=== PATIENT | female | born 1995 | race Caucasian/White ===

== ENCOUNTER 2017-07-07 23:04 | Outpatient (CLI) | payer OTHER ==
[2017-07-07 23:17] VITALS: BP 117/70
[2017-07-07] MEDS ORDERED: LACTATED RINGERS 1,000 ML IV ONE (23:21)
[2017-07-07 23:44] LABS: Bacteria,Urine 1+ /HPF (Negative); Bilirubin,Urine NEG (Negative); Blood,Urine NEG (Negative); Ketones,Urine 20 mg/dL (Negative); Leukocyte Esterase,Urine SM (Negative); Mucus,Urine FEW /HPF; Nitrite,Urine NEG (Negative); Protein,Urine <15 mg/dL mg/dL (Negative); Urobilinogen,Urine < 2.0 mg/dL (<2.0)
[2017-07-07 23:50] LABS: RBC,Urine < 1.0 /HPF (0.0-6.0); WBC,Urine < 1.0 /HPF (0.0-6.0)
== END 2017-07-08 00:54 | disposition home or self-care (01) ==
LOC: TRG 23:04
PROVIDERS: ATTEND Obstetrics & Gynecology
DX: O47.02 False labor before 37 completed weeks of gestation, second trimester (principal); Z3A.27 27 weeks gestation of pregnancy
CPT/HCPCS: 59025; 81001; 96360; J7120

== ENCOUNTER 2017-07-26 14:27 | Outpatient (CLI) | payer OTHER ==
[2017-07-26 16:50] VITALS: BP 99/49
[2017-07-26] MEDS ORDERED: LACTATED RINGERS 1,000 ML IV SCH (17:00)
[2017-07-26 17:36] LABS: Bilirubin,Urine NEG (Negative); Blood,Urine NEG (Negative); Color,Urine Yellow (Yellow); Mucus,Urine 1+ /HPF; Nitrite,Urine NEG (Negative); Protein,Urine <15 mg/dL mg/dL (Negative)
== END 2017-07-26 20:02 | disposition home or self-care (01) ==
LOC: TRG 14:27
PROVIDERS: ATTEND Obstetrics & Gynecology
DX: Z34.93 Encounter for supervision of normal pregnancy, unspecified, third trimester (principal); Z3A.30 30 weeks gestation of pregnancy
CPT/HCPCS: 59025; 81001; 96360; J7120

== ENCOUNTER 2017-09-26 13:35 | Inpatient (IN) | payer OTHER ==
[2017-09-26] MEDS ORDERED: SUBLIMAZE IV PRN ×2 (14:10→15:00)
[2017-09-26] MEDS ORDERED: ePHEDrine SULFATE IV PRN ×2 (14:10→16:01)
[2017-09-26] MEDS ORDERED: XYLOCAINE 2% INFILTRATI ONE (14:10)
[2017-09-26] MEDS ORDERED: MINERAL OIL PO PRN (14:10)
[2017-09-26] MEDS ORDERED: BRETHINE SUB-Q PRN (14:10)
[2017-09-26] MEDS ORDERED: ZOFRAN IV PRN ×2 (14:10→22:36)
--- NOTE | 2017-09-26 14:19 | History and Physical Report ---
History of Present Illness Date of examination: 09/26/17 (pt presents in active labor) History of present illness: EDC Confirmation: 10/04/2017 Gestational Age: 5 5/7 weeks Past History : 2 Para: 1 Aborta: 0 Past Medical History: Reviewed history from 10/26/2015 and no changes required: Negative Past Medical History Past Surgical History: Reviewed history from 10/26/2015 and no changes required: toe nail removed Past Medical History Abnormal PAP: negative BHARAT Exposure: negative Infertility: negative Uterine Anomaly: negative Uterine Surgery (not C/S): negative Other Gynecologic Problems: negative Social Hx: Patient is single Smoking History: Patient has never smoked. Infection History Hx of STD: none HIV Risk Eval: low risk Hepatitis B Risk Eval: low risk Personal hx. of genital herpes: no Partner hx. of genital herpes: no Rash, Viral, or Febrile illness since last LMP? no Varicella/Chicken Pox Status: Immunized Genetic History Congenital Heart Defect: Mom: no Dad: no Levi Disease: Mom: no Dad: no Thalassemia Mom: no Dad: no Neural Tube Defect Mom: no Dad: no Down's Syndrome Mom: no Dad: no Alexis-Sachs Mom: no Dad: no Sickle Cell Disease/Trait Mom: no Dad: no Hemophilia Mom: no Dad: no Muscular Dystrophy Mom: no Dad: no Cystic Fibrosis Mom: no Dad: no [place] Chorea Mom: no Dad: no Mental Retardation Mom: no Dad: no Fragile X Mom: no Dad: no Other Genetic/Chromosomal Disorder Mom: no Dad: no Child w/other defect Mom: no Dad: no Enviromental Exposures Xray Exposure: no Medication, drug, or alcohol use since LMP: no Chemical/Other Exposure: no Exposure to Cat Liter: no Hx of Parvovirus (Fifth Disease): no Occupational Exposure to Children: none Active Medications (reviewed today): None Current Allergies (reviewed today): No known allergies Laboratory Results Routine Urinalysis Leukocytes: negative Nitrite: negative Urobilinogen: negative Protein: Negative Blood: negative Ketone: negative Bilirubin: negative Glucose: Negative Urine HCG: positive Review of Systems General Denies fever, chills, sweats, anorexia, fatigue, weakness, malaise, weight loss and sleep disorder. Complains of nausea. Denies vomiting, headache, swelling of legs, abdominal pain, vaginal discharge, vaginal bleeding and contractions. Denies vaginal discharge, incontinence, dysuria, hematuria, urinary frequency, amenorrhea, menorrhagia, abnormal vaginal bleeding, pelvic pain, genital sores, decreased libido, painful periods, painful sex, urinary urgency, hot flashes, vaginal dryness, vaginal itching and vaginal odor. CV Denies chest pains, palpitations, syncope, dyspnea on exertion, orthopnea, PND and peripheral edema. Resp Denies cough, dyspnea at rest, excessive sputum, hemoptysis, wheezing and pleurisy. GI Denies nausea, vomiting, diarrhea, constipation, change in bowel habits, abdominal pain, melena, hematochezia, jaundice, gas/bloating, indigestion/ heartburn, dysphagia and odynophagia. Endo Denies cold intolerance, heat intolerance, polydipsia, polyphagia, polyuria and unusual weight change. Breast Denies left breast lump, right breast lump, nipple discharge, bloody discharge from nipple, breast pain, abnormal mammogram and breast enlargement. MS Denies back pain, joint pain, joint swelling, muscle cramps, muscle weakness, stiffness, arthritis, sciatica, restless legs, leg pain at night and leg pain with exertion. Derm Denies rash, itching, dryness and suspicious lesions. Neuro Denies paralysis, paresthesias, headache, seizures, tremors, vertigo, transient blindness, frequent falls, frequent headaches and difficulty walking. Psych Denies depression, anxiety, irritability and mood swings. Eyes Denies blurring, diplopia, irritation, discharge, vision loss, eye pain and photophobia. ENT Denies earache, ear discharge, tinnitus, decreased hearing, nasal congestion, nosebleeds, sore throat and hoarseness. Allergy Denies urticaria, allergic rash, hay fever and recurrent infections. Heme Denies abnormal bruising, bleeding and enlarged lymph nodes. PHYSICAL EXAM HEENT: PERRLA, normal conjunctiva, external nose and nasal mucosa normal, oropharynx clear Neck/Thyroid: supple, thyroid normal Skin no significant abnormal lesions or rashes Chest: respiratory effort normal, clear to auscultation Breasts: normal without skin changes or masses CV: regular, normal S1-S2, no murmur, no rub, no gallop Abdomen: normal bowel sounds, soft, nontender, no HSM Musculoskeletal: grossly normal ROM in joints, no joint tenderness or muscle weakness Neuro: grossly normal DTRs, sensation, strength, cranial nerves Extremities: no clubbing, cyanosis, or edema [employer] SALESP[employer] Exams Fundal Ht: sono size: AGA FHT: + Past History - Obstetrical History Expected Date of Delivery: 10/04/17 Actual Gestation: 38 Week(s) 6 Day(s) : 2 Para: 1 Hx # Term Pregnancies: 1 Number of Living Children: 1 Medications and Allergies Allergies Allergy/AdvReac Type Severity Reaction Status Date / Time No Known Allergies Allergy Unverified 06/15/16 19:58 Home Medications Medication Instructions Recorded Confirmed Last Taken Type Ferrous Sulfate [Feosol 325 MG tab] 325 mg PO TID #90 tablet 06/16/16 Unknown Rx Ibuprofen [Motrin 800 MG tab] 800 mg PO Q8HR PRN #30 tablet 06/16/16 Unknown Rx Lidocain2.5%/Prilocai2.5% [Emla] 5 gm TP ONCE PRN #1 tube 06/16/16 Unknown Rx Active Meds: Active Medications Ephedrine Sulfate (Ephedrine Sulfate) 10 mg IV Q2M PRN PRN Reason: Hypotension Fentanyl (Sublimaze) 100 mcg IV Q2H PRN PRN Reason: Labor Pain Parenteral Electrolytes (Normosol-R Ph 7.4) 1,000 mls @ 125 mls/hr IV DIRECT ZEINAB Oxytocin/Sodium Chloride (Pitocin/Ns 20 Unit/1000ml Drip) 20 units in 1,000 mls @ 125 mls/hr IV DIRECT ZEINAB Oxytocin/Sodium Chloride (Pitocin/Ns 30 Unit/500ml) 30 units in 500 mls @ 4 mls /hr IV TITR ZEINAB; Protocol Lidocaine (Xylocaine 2%) 20 ml INFILTRATI ONCE ONE Stop: 09/26/17 14:11 Mineral Oil (Mineral Oil) 30 ml PO QHS PRN PRN Reason: Constipation Ondansetron HCl (Zofran) 4 mg IV Q8H PRN PRN Reason: Nausea And Vomiting Terbutaline Sulfate (Brethine) 0.25 mg SUB-Q ONCE PRN PRN Reason: Hyperstimulation/Hypertonicity - Vital Signs Vital signs: Vital Signs Pulse BP 93 H 120/70 09/26/17 14:05 09/26/17 14:05 Temp Pulse Resp BP Pulse Ox 93 H 120/70 09/26/17 14:09/26/17 14:05 - Physical Exam Breasts: Positive: deferred Cardiovascular: Regular rate, Normal S1, Normal S2 Lungs: Positive: Normal air movement Abdomen: Positive: normal appearance, soft, normal bowel sounds. Negative: distention, tenderness Genitourinary (Female): Positive: normal perenium Vulva: both: normal Vagina: Positive: normal moisture. Negative: discharge Cervix: Negative: lesion, discharge Uterus: Positive: normal size, normal contour Adnexa: both: normal Anus/Rectum: Positive: normal perianal skin, heme negative. Negative: rectal mass, hemorrhoids Extremities: Deep Tendon Reflex Grade: Normal +2 - Obstetrical FHR: category 1 Uterine Contraction Monitor Mode: External Cervical Dilatation: 5 (per social sciences chair) Cervical Effacement Percentage: 90 station: 0 Uterine Contraction Pattern: Regular Uterine Tone Measurement Phase: Resting Uterine Contraction Intensity: Moderate Results All other labs normal. Strep Gp B GEOVANI Negative HBsAg Screen Negative Negative *1 Rubella Antibodies, IgG [L] <0.90 index Immune >0.99 *2 Non-immune <0.90 Equivocal 0.90 - 0.99 Immune >0.99 ABO Grouping O *3 Rh Factor Positive *4 Please note: Prior records for this patient's ABO / Rh type are not available for additional verification. Antibody Screen Negative Negative *5 RPR Non Reactive Non Reactive *6 WBC [H] 12.3 x10E3/uL 3.4-10.8 *7 RBC 4.86 x10E6/uL 3.77-5.28 *8 Hemoglobin [L] 11.0 g/dL 11.1-15.9 *9 Hematocrit 35.8 % 34.0-46.6 *10 MCV [L] 74 fL 79-97 *11 MCH [L] 22.6 pg 26.6-33.0 *12 MCHC [L] 30.7 g/dL 31.5-35.7 *13 RDW [H] 16.9 % 12.3-15.4 *14 Platelets 253 x10E3/uL 150-379 *15 Neutrophils 87 % *16 Lymphs 9 % *17 Monocytes 4 % *18 Eos 0 % *19 Basos 0 % *20 ! Immature Cells <No Reported Value> *21 Neutrophils (Absolute) [H] 10.7 x10E3/uL 1.4-7.0 *22 Lymphs (Absolute) 1.1 x10E3/uL 0.7-3.1 *23 Monocytes(Absolute) 0.5 x10E3/uL 0.1-0.9 *24 Eos (Absolute) 0.0 x10E3/uL 0.0-0.4 *25 Baso (Absolute) 0.0 x10E3/uL 0.0-0.2 *26 ! Immature Granulocytes 0 % *27 ! Immature Grans (Abs) 0.0 x10E3/uL 0.0-0.1 *28 ! NRBC <No Reported Value> *29 Hematology Comments: <No Reported Value> *30 Tests: (2) Cystic Fibrosis Profile (944519) ! CF, Screen Comment: *31 RESULTS: Negative for 32 mutations analyzed Tests: (3) HB Solu + Rflx Fra (563993) Hemoglobin (Hgb) Solubility Negative Negative *33 Tests: (4) Panel 162193 ([id number]) HIV Screen 4th Generation wRfx Non Reactive Non Reactive *34 Tests: (5) HCV Ab w/Rflx to Verification ([id number]) ! HCV Ab <0.1 s/co ratio 0.0-0.9 *35 Tests: (6) Comment: ([id number]) ! Comment: SPRCS *36 Non reactive HCV antibody screen is consistent with no HCV infection, unless recent infection is suspected or other evidence exists to indicate HCV infection. Tests: (7) Urine Culture, Routine ([id number]) Urine Culture, Routine Final report *37 Tests: (8) Result ([id number]) ! Result 1 No growth *38 Assessment and Plan 22yo @ 38+ weeks in active labor GBS negative Orders in EMR Anticipate delivery
[2017-09-26 14:54] LABS: Hematocrit 28.4 % (30.3-42.9); Hemoglobin 8.6 gm/dl (10.1-14.3); Mean Corpuscular HGB Conc 30 % (30-34); Platelet Count 226 K/mm3 (140-440); Red Blood Count 4.44 M/mm3 (3.65-5.03)
[2017-09-26 14:55] LABS: Mean Corpuscular Hemoglobin 19 pg (28-32); Mean Corpuscular Volume 64 fl (79-97); Red Cell Distribution Width 20.1 % (13.2-15.2)
[2017-09-26] MEDS ORDERED: PITOCin/NS 20 UNIT/1000ML DRIP 20 UNITS/1,000 ML BAG IV SCH (15:00)
[2017-09-26] MEDS ORDERED: PITOCin/NS 30 UNIT/500ML 30 UNITS/500 ML BAG IV SCH (15:00)
[2017-09-26] MEDS: NORMOSOL-R PH 7.4 1,000 ML IV SCH ×2 (15:38→16:34)
[2017-09-26] MEDS ORDERED: NARCAN 2 MG/2 ML IV PRN (16:01)
[2017-09-26] MEDS ORDERED: XYLOCAINE 2%/ EPI 1:200,000 INFILTRATI ONE (16:22)
--- NOTE | 2017-09-26 16:34 | Anesthesia Consultation ---
Anesthesia Consult and Med Hx - Airway Anesthetic Teeth Evaluation: Good ROM Head & Neck: Adequate Mental/Hyoid Distance: Adequate Mallampati Class: Class II Intubation Access Assessment: Good - Pulmonary Exam CTA: Yes - Cardiac Exam Cardiac Exam: RRR - Pre-Operative Health Status ASA Pre-Surgery Classification: ASA2 Proposed Anesthetic Plan: Epidural - Pulmonary Hx Asthma: No COPD: No Hx Pneumonia: No - Cardiovascular System Hx Hypertension: No - Central Nervous System Hx Seizures: No Hx Psychiatric Problems: No - Endocrine Hx Renal Disease: No Hx End Stage Renal Disease: No Hx Hypothyroidism: No Hx Hyperthyroidism: No - Hematic Hx Anemia: No Hx Sickle Cell Disease: No - Other Systems Hx Alcohol Use: No
[2017-09-26] MEDS ORDERED: fentaNYL-BUPIV 2 MCG/ML-0.125% 200 MCG/100 ML BAG EPIDURAL SCH (17:30)
--- NOTE | 2017-09-26 18:02 | Procedure Note ---
OB Delivery Note - Delivery Date of Delivery: 09/26/17 Healthcare Manager: ZABRINA SHEPARD Estimated blood loss: 500cc - Vaginal Delivery presentation: vertex Delivery position: OA Intrapartum events: none Delivery augmentation: rupture of membranes Delivery monitor: external FHT, external uterine Route of delivery: Delivery placenta: spontaneous Delivery cord: 3 umbilical vessels Episiotomy: none Delivery laceration: none Anesthesia: epidural Delivery comments: live born female over intact perineum Baby skin to skin on mom's abdomen Cord blood obt Placenta and membrane del complete and intact, 3 vessel cord. Pit IVFs 8/9, EBL 500, Wgt 7-1 Mom and baby remain LDR stable - Infant A at 1 minute: 8 at 5 minutes: 9 Infant Gender: Female (wgt 7-1)
[2017-09-26] MEDS ORDERED: TORADOL IV PRN (18:05)
[2017-09-26] MEDS ORDERED: BENADRYL PO PRN ×2 (18:05→22:36)
[2017-09-26] MEDS ORDERED: DULCOLAX PR PRN ×2 (18:05→22:36)
[2017-09-26] MEDS ORDERED: TYLENOL PO PRN ×2 (18:05→22:36)
[2017-09-26] MEDS ORDERED: LANSINOH TP PRN ×2 (18:05→22:36)
[2017-09-26] MEDS ORDERED: TUCKS PAD TP PRN ×2 (18:05→22:36)
[2017-09-26] MEDS ORDERED: MILK OF MAGNESIA PO PRN ×2 (18:05→22:36)
[2017-09-26] MEDS ORDERED: PHENERGAN PO PRN ×2 (18:05→22:36)
[2017-09-26] MEDS ORDERED: MOTRIN PO SCH (19:00)
[2017-09-26] MEDS ORDERED: SODIUM CHLORIDE FLUSH SYRINGE 10 ML IV NR ×2 (19:00→23:00)
[2017-09-26] MEDS ORDERED: COLACE PO SCH (22:00)
[2017-09-26] MEDS ORDERED: NORCO 5/325 PO PRN (22:36)
[2017-09-26] MEDS ORDERED: ANUCORT-HC PR PRN (22:36)
[2017-09-26] MEDS ORDERED: PHENERGAN PR PRN (22:36)
[2017-09-26] MEDS: MOTRIN PO SCH (23:51)
[2017-09-27] MEDS: SENOKOT S PO SCH ×2 (00:51→23:51)
[2017-09-27] MEDS: MOTRIN PO SCH ×3 (05:12→23:52)
[2017-09-27 05:40] LABS: Hematocrit 24.1 % (30.3-42.9); Hemoglobin 7.3 gm/dl (10.1-14.3)
[2017-09-27] MEDS ORDERED: M-M-R II VACCINE SUB-Q ONE (06:00)
[2017-09-27] MEDS ORDERED: BOOSTRIX IM ONE (06:00)
--- NOTE | 2017-09-27 07:27 | Discharge Summary ---
Providers - Providers Date of Admission: 09/26/17 14:36 Date of discharge: 09/27/17 (pt req d/c today if stable & baby can go) Attending physician: JUVENTINO WINSLOW 09/26/17 22:39 Consult to Director Of Special Services [CONS] Routine Reason For Exam: assistance with , SNS Primary care physician: NANCY MYRICK Hospitalization Reason for admission: active labor Delivery: Episiotomy: none Laceration: none Incision: normal Other procedures: none complications: none Discharge diagnosis: IUP at term delivered [place] baby: female Hospital course: uncomplicated vaginal delivery pt w/o complaint VSS FF below umb Lochia small perineum intact H&H 02/05 Pt has chronic anemia Drop r/t blood loss from surgery Pt is asymptomatic. Doing well s /p vag delivery P: d/c today with instructions RTO 4 weeks RX po iron Pt instructed to increase dietary iron also Condition at discharge: Good Disposition: DC-01 TO HOME OR SELFCARE - Discharge Diagnoses (1) Spontaneous vaginal delivery Status: Acute Comment: RTO 4 weeks PP care (2) Anemia Status: Acute Qualifiers: Anemia type: iron deficiency Iron deficiency anemia type: inadequate dietary iron intake Qualified Code(s): D50.8 - Other iron deficiency anemias Comment: d/c home on po iron and instructions to increase dietary iron Plan - Discharge Medications Prescriptions: Docusate Sodium [Colace] 100 mg PO BID PRN #60 capsule PRN Reason: Constipation Ferrous Sulfate [Feosol 325 MG tab] 325 mg PO BID #60 tablet Ibuprofen [Motrin 800 MG tab] 800 mg PO TID PRN #30 tablet PRN Reason: Pain - Provider Discharge Summary Activity: routine, no sex for 6 weeks, no heavy lifting 4 weeks, no strenuous exercise Diet: routine Instructions: routine Additional instructions: [] Smoking cessation referral if applicable(refer to patient education folder for contact #) [] Refer to [facility]'s [facility] Booklet Call your doctor immediately for: * Fever > 100.5 * Heavy vaginal bleeding ( >1 pad per hour) * Severe persistent headache * Shortness of breath * Reddened, hot, painful area to leg or breast * Drainage or odor from incision. * Keep incision clean and dry at all times and follow doctor's instructions regarding bathing/showering - Follow up plan Follow up: NANCY MYRICK MD [Primary Care Provider] - 10/29/17 (Congratulations! Please call [phone] to schedule your visit in 4 weeks. Take medication as instructed. Also increase the dietary iron in your diet to help improve your anemia. Call with any concerns.)
[2017-09-27] MEDS ORDERED: COLACE PO SCH (10:00)
[2017-09-27] MEDS ORDERED: PRENATAL VITAMIN PO SCH ×2 (10:00)
[2017-09-28] MEDS: MOTRIN PO SCH (05:38)
[2017-09-28] MEDS ORDERED: BOOSTRIX IM ONE (06:00)
[2017-09-28 09:32] VITALS: BP 109/57
[2017-09-28] MEDS ORDERED: M-M-R II VACCINE SUB-Q ONE (10:30)
== END 2017-09-28 10:00 | disposition home or self-care (01) | DRG 775 ==
LOC: TRG 13:35 → LD 14:36 → OB 19:46
PROVIDERS: ADMIT Obstetrics & Gynecology; ATTEND Obstetrics & Gynecology
PROC: 10E0XZZ Delivery of Products of Conception, External Approach (ICD-10-PCS; principal; 2017-09-26)
PROC: 3E0R3BZ Introduction of Anesthetic Agent into Spinal Canal, Percutaneous Approach (ICD-10-PCS; 2017-09-26)
PROC: 00HU33Z Insertion of Infusion Device into Spinal Canal, Percutaneous Approach (ICD-10-PCS; 2017-09-26)
PROC: 3E0234Z Introduction of Serum, Toxoid and Vaccine into Muscle, Percutaneous Approach (ICD-10-PCS; 2017-09-28)
DX: O99.02 Anemia complicating childbirth (principal); Z3A.38 38 weeks gestation of pregnancy; Z37.0 Single live birth; Z23 Encounter for immunization; Z79.899 Other long term (current) drug therapy; D50.9 Iron deficiency anemia, unspecified
CPT/HCPCS: 36415; 85014; 85018; 85027; 86592; 86850; 86900; 86901; 90471; 90707; 90715; 99211; A6250; G0463; J2590; J3010

== ENCOUNTER 2019-01-13 11:01 | Outpatient (CLI) | payer OTHER ==
[2019-01-13] MEDS ORDERED: LACTATED RINGERS 500 ML IV ONE (11:26)
[2019-01-13 11:37] VITALS: BP 116/62
[2019-01-13] MEDS ORDERED: LACTATED RINGERS 1,000 ML IV ONE (11:52)
[2019-01-13 12:04] LABS: Bacteria,Urine 1+ /HPF (Negative); Bilirubin,Urine NEG (Negative); Blood,Urine NEG (Negative); Color,Urine Yellow (Yellow); Mucus,Urine 2+ /HPF; Urobilinogen,Urine < 2.0 mg/dL (<2.0)
[2019-01-13] MEDS ORDERED: ZOFRAN IV ONE (12:49)
== END 2019-01-13 13:27 | disposition home or self-care (01) ==
LOC: TRG 11:01
PROVIDERS: ATTEND Obstetrics & Gynecology
DX: O21.2 Late vomiting of pregnancy (principal); O26.893 Other specified pregnancy related conditions, third trimester; M54.9 Dorsalgia, unspecified; O47.03 False labor before 37 completed weeks of gestation, third trimester; Z3A.33 33 weeks gestation of pregnancy
CPT/HCPCS: 81001; 96361; 96374; J2405; J7120; 59025

== ENCOUNTER 2019-02-19 20:14 | Outpatient (CLI) | payer OTHER ==
[2019-02-19 20:31] VITALS: BP 111/59
== END 2019-02-19 21:45 | disposition home or self-care (01) ==
LOC: TRG 20:14
PROVIDERS: ATTEND Obstetrics & Gynecology
DX: O26.893 Other specified pregnancy related conditions, third trimester (principal); R10.9 Unspecified abdominal pain; Z3A.38 38 weeks gestation of pregnancy
CPT/HCPCS: 59025

== ENCOUNTER 2019-02-20 12:07 | Inpatient (IN) | payer OTHER ==
[2019-02-20] MEDS ORDERED: SUBLIMAZE IV PRN (12:33)
[2019-02-20] MEDS ORDERED: XYLOCAINE 2% INFILTRATI ONE (12:33)
[2019-02-20] MEDS ORDERED: MINERAL OIL PO PRN (12:33)
[2019-02-20] MEDS ORDERED: BRETHINE SUB-Q PRN (12:33)
[2019-02-20] MEDS ORDERED: ZOFRAN IV PRN (12:33)
--- NOTE | 2019-02-20 12:40 | History and Physical Report ---
History of Present Illness Date of examination: 02/20/19 Chief complaint: active labor History of present illness: EDC Calculations LMP: 03/03/2019 Past History : 3 Term Births: 2 Premature Births: 0 Living Children: 2 Para: 2 Mult. Births: 0 Prev : 0 Prev. attempt? none Aborta: 0 Elect. Ab: 0 Spont. Ab: 0 Ectopics: 0 # 1 Delivery date: 06/16/2016 Weeks Gestation: 37 Delivery type: Vaginal Anesthesia type: epidural Delivery location: [facility] Sex: male weight: 7.38 Name: Ryan Isaías WYATT Comments: none # 2 Delivery date: 09/26/2017 Weeks Gestation: 38 Delivery type: Vaginal Anesthesia type: epidural Delivery location: [facility] Infant Sex: female weight: 7.06 Comments: none Past Medical History: Reviewed history from 10/26/2015 and no changes required: Negative Past Medical History Past Surgical History: Reviewed history from 10/26/2015 and no changes required: toe nail removed Past Medical History Abnormal PAP: negative BHARAT Exposure: negative Infertility: negative Uterine Anomaly: negative Uterine Surgery (not C/S): negative Other Gynecologic Problems: negative Social Hx: Patient is single. lives with children. Different FOC with this . works at [employer] Smoking History: Patient has never smoked. Denies ETOH or illegal drug use. Infection History Hx of STD: none HIV Risk Eval: low risk Hepatitis B Risk Eval: low risk Personal hx. of genital herpes: no Partner hx. of genital herpes: no Rash, Viral, or Febrile illness since last LMP? no Varicella/Chicken Pox Status: Immunized TB Risk: no Genetic History Congenital Heart Defect: Mom: no Dad: no Levi Disease: Mom: no Dad: no Thalassemia Mom: no Dad: no Neural Tube Defect Mom: no Dad: no Down's Syndrome Mom: no Dad: no Alexis-Sachs Mom: no Dad: no Sickle Cell Disease/Trait Mom: no Dad: no Hemophilia Mom: no Dad: no Muscular Dystrophy Mom: no Dad: no Cystic Fibrosis Mom: no Dad: no [place] Chorea Mom: no Dad: no Mental Retardation Mom: no Dad: no Fragile X Mom: no Dad: no Other Genetic/Chromosomal Disorder Mom: no Dad: no Child w/other defect Mom: no Dad: no Enviromental Exposures Enviromental Exposures Reviewed Xray Exposure: no Medication, drug, or alcohol use since LMP: no Chemical/Other Exposure: no Exposure to Cat Liter: no Hx of Parvovirus (Fifth Disease): no Occupational Exposure to Children: none Past History Past Medical History: other (see HPI) Past Surgical History: other (see HPI) BEHAVIORAL INSTRUCTOR History: other (see HPI) Family/Genetic History: other (see HPI) Social history: single, lives with family - Obstetrical History Expected Date of Delivery: 03/03/19 Actual Gestation: 38 Week(s) 3 Day(s) : 3 Para: 2 Hx # Term Pregnancies: 2 Number of Pregnancies: 0 Spontaneous Abortions: 0 Induced : 0 Number of Living Children: 2 Medications and Allergies Allergies Allergy/AdvReac Type Severity Reaction Status Date / Time No Known Allergies Allergy Verified 01/13/19 11:26 Home Medications Medication Instructions Recorded Confirmed Last Taken Type Ferrous Sulfate [Feosol 325 MG tab] 325 mg PO TID #90 tablet 06/16/16 09/26/17 09/13/17 10:00 Rx Ibuprofen [Motrin 800 MG tab] 800 mg PO Q8HR PRN #30 tablet 06/16/16 09/26/17 Unknown Rx Lidocain2.5%/Prilocai2.5% [Emla] 5 gm TP ONCE PRN #1 tube 06/16/16 09/26/17 Unknown Rx Docusate Sodium [Colace] 100 mg PO BID PRN #60 capsule 09/27/17 Unknown Rx Ferrous Sulfate [Feosol 325 MG tab] 325 mg PO BID #60 tablet 09/27/17 Unknown Rx Ibuprofen [Motrin 800 MG tab] 800 mg PO TID PRN #30 tablet 09/27/17 Unknown Rx Review of Systems All systems: negative - Physical Exam Breasts: Positive: normal Cardiovascular: Regular rate Lungs: Positive: Clear to auscultation, Normal air movement Abdomen: Positive: normal appearance, soft Genitourinary (Female): Positive: normal external genitalia, normal perenium Vulva: both: normal Vagina: Positive: normal moisture Uterus: Positive: normal size, normal contour Anus/Rectum: Positive: normal perianal skin Extremities: Positive: normal Deep Tendon Reflex Grade: Normal +2 - Obstetrical FHR: category 2 Uterine Contraction Monitor Mode: External Cervical Dilatation: 6 Cervical Effacement Percentage: 90 station: -1 Uterine Contraction Pattern: Regular Uterine Tone Measurement Phase: Contraction Uterine Contraction Intensity: Moderate Results All other labs normal. Assessment and Plan 23y/o @ 38+3 weeks presented in active labor, SVE /-1, vertex. GBS Neg. - Patient Problems (1) 38 weeks gestation of Current Visit: No Status: Acute Plan to address problem: Labor admission orders in EMR Anticipate (2) Active labor at term Current Visit: No Status: Acute
[2019-02-20] MEDS ORDERED: PITOCin/NS 30 UNIT/500ML 30 UNITS/500 ML BAG IV SCH (13:00)
[2019-02-20] MEDS ORDERED: PITOCin/NS 20 UNIT/1000ML DRIP 20 UNITS/1,000 ML BAG IV SCH ×2 (13:00→18:22)
[2019-02-20] MEDS: LACTATED RINGERS 1,000 ML IV SCH ×2 (13:16→13:59)
[2019-02-20 14:10] LABS: Hematocrit 24.6 % (30.3-42.9); Hemoglobin 7.3 gm/dl (10.1-14.3); Mean Corpuscular HGB Conc 30 % (30-34); Platelet Count 211 K/mm3 (140-440); Red Blood Count 4.04 M/mm3 (3.65-5.03)
[2019-02-20 14:11] LABS: Mean Corpuscular Volume 61 fl (79-97); Red Cell Distribution Width 20.6 % (13.2-15.2)
[2019-02-20] MEDS ORDERED: NARCAN 2 MG/2 ML IV PRN (14:30)
--- NOTE | 2019-02-20 14:35 | Anesthesia Consultation ---
Anesthesia Consult and Med Hx Date of service: 02/20/19 - Airway Anesthetic Teeth Evaluation: Good, Partials Mental/Hyoid Distance: Inadequate Intubation Access Assessment: Probably Good - Pulmonary Exam CTA: Yes - Cardiac Exam Cardiac Exam: RRR - Pre-Operative Health Status ASA Pre-Surgery Classification: ASA2 Proposed Anesthetic Plan: Epidural - Pulmonary Hx Smoking: No Hx Asthma: No Hx Respiratory Symptoms: No SOB: No COPD: No Home Oxygen Therapy: No Hx Pneumonia: No Hx Sleep Apnea: No - Cardiovascular System Hx Hypertension: No Hx Coronary Artery Disease: No Hx Heart Attack/AMI: No Hx Angina: No Hx Percutaneous Transluminal Coronary Angioplasty (PTCA): No Hx Cardia Arrhythmia: No Hx Pacemaker: No Hx Internal Defibrillator: No Hx Valvular Heart Disease: No Hx Heart Murmur: No Hx Peripheral Vascular Disease: No - Central Nervous System Hx Neuromuscular Disorder: No Hx Seizures: No CVA: No Hx Back Pain: No Hx Psychiatric Problems: No - Gastrointestinal Hx Ulcer: No Hx Gastroesophageal Reflux Disease: Yes - Endocrine Hx Renal Disease: No Hx End Stage Renal Disease: No Hx Cirrhosis: No Hx Liver Disease: No Hx Insulin Dependent Diabetes: No Hx Non-Insulin Dependent Diabetes: No Hx Hypothyroidism: No Hx Hyperthyroidism: No - Hematic Hx Anemia: Yes Hx Sickle Cell Disease: No - Other Systems Hx Alcohol Use: No Hx Substance Use: No Hx Cancer: No Hx Obesity: No
[2019-02-20] MEDS ORDERED: fentaNYL-BUPIV 2 MCG/ML-0.125% 200 MCG/100 ML BAG EPIDURAL SCH (15:00)
--- NOTE | 2019-02-20 16:49 | Procedure Note ---
OB Delivery Note - Delivery Date of Delivery: 02/20/19 ( Male) Mailing Machine Operator: JOSE OROZCO Estimated blood loss: other (350) - Vaginal Delivery presentation: vertex Delivery position: OA Intrapartum events: none Delivery induction: none Delivery augmentation: pitocin Delivery monitor: external FHT, external uterine Route of delivery: Delivery placenta: spontaneous Delivery cord: 3 umbilical vessels Episiotomy: none Delivery laceration: none Anesthesia: epidural Delivery comments: Male delivered over intact perineum, placed skin to skin. 3 vessel cord clamped and cut, cord blood collected. placenta delivered intact and complete. Pit to IVF. lochia small, fundus massaged firm and reduced to scant bleeding after fundal massage. EBL 350, apgars 8/9. Mother and infant remain LDR stable. - A at 1 minute: 8 at 5 minutes: 9 Infant Gender: Male (6#11)
[2019-02-20] MEDS ORDERED: IBUPROFEN PO ONE ×2 (18:15→18:23)
[2019-02-20] MEDS ORDERED: TYLENOL PO PRN (18:22)
[2019-02-20] MEDS ORDERED: LANSINOH TP PRN (18:22)
[2019-02-20] MEDS ORDERED: TUCKS PAD TP PRN (18:22)
[2019-02-20] MEDS ORDERED: IBUPROFEN PO SCH (18:22)
[2019-02-20] MEDS ORDERED: MILK OF MAGNESIA PO PRN (18:22)
[2019-02-20] MEDS ORDERED: PHENERGAN PO PRN (18:22)
[2019-02-20] MEDS ORDERED: DERMOPLAST TP PRN (18:22)
[2019-02-20] MEDS ORDERED: BENADRYL PO PRN (18:22)
[2019-02-20] MEDS ORDERED: DULCOLAX PR PRN (18:22)
[2019-02-20] MEDS ORDERED: SODIUM CHLORIDE FLUSH SYRINGE 10 ML IV NR (18:22)
[2019-02-20] MEDS: FEOSOL PO SCH (22:15)
[2019-02-21 04:48] LABS: Hematocrit 23.1 % (30.3-42.9); Hemoglobin 6.8 gm/dl (10.1-14.3)
[2019-02-21] MEDS: IBUPROFEN PO SCH ×3 (05:47→23:12)
[2019-02-21] MEDS ORDERED: BOOSTRIX IM ONE (06:00)
[2019-02-21] MEDS: FEOSOL PO SCH ×3 (09:03→23:11)
[2019-02-21] MEDS: COLACE PO SCH ×2 (09:04→23:12)
[2019-02-21] MEDS: PRENATAL VITAMIN PO SCH (09:04)
--- NOTE | 2019-02-21 10:17 | Discharge Summary ---
Providers - Providers Date of Admission: 02/20/19 12:54 Date of discharge: 02/21/19 (patient desires discharge today) Attending physician: NANCY MYRICK Primary care physician: ETHAN GUILLEN Hospitalization Reason for admission: labor Condition: Good Pertinent studies: post delivery H&H 6.8/23.1. pre existing anemia prior to delivery. patient is asymptomatic. Fe ordered. Redraw H&H values are 7.1/24. cleared for discharge by Dr. Dong Procedures: Hospital course: uncomplicated and course Disposition: DC-01 TO HOME OR SELFCARE Core Measure Documentation - Palliative Care Palliative Care/ Comfort Measures: Not Applicable - Core Measures Any of the following diagnoses?: none Exam - Constitutional Vitals: Temp Pulse Resp BP Pulse Ox 98.4 F 86 20 98/60 99 02/21/19 07:22 02/21/19 07:22 02/21/19 07:22 02/21/19 07:22 02/21/19 07:22 General appearance: Present: no acute distress, well-nourished - EENT Eyes: Present: PERRL ENT: hearing intact, clear oral mucosa - Neck Neck: Present: supple, normal ROM - Respiratory Respiratory effort: normal Respiratory: bilateral: CTA - Cardiovascular Heart Sounds: Present: S1 & S2. Absent: rub, click - Extremities Extremities: pulses symmetrical, No edema Peripheral Pulses: within normal limits - Abdominal General gastrointestinal: Present: soft, non-tender, non-distended, normal bowel sounds Female genitourinary: Present: normal - Integumentary Integumentary: Present: clear, warm, dry - Musculoskeletal Musculoskeletal: gait normal, strength equal bilaterally - Psychiatric Psychiatric: appropriate mood/affect, intact judgment & insight - Neurologic Neurologic: CNII-XII intact, moves all extremities - Additional findings Additional findings: Patient resting in bed, she denies any complaints or concerns. Fundus firm, ML, U/2. Vaginal bleeding is small, patient denies any heavy bleeding or clots. Patient reports pain is well controlled with medications. DWP post delivery H&H, she denies any dizziness or feeling faint with ambulation or position changes. Will redraw and discharge home if values are increased. Bleeding precautions reviewed with patient. Pt reports breast feeding is going well, she denies any breast complaints. VSSAF. Plan Activity: no restrictions Diet: regular Follow up with: ETHAN GUILLEN MD [Primary Care Provider] - 03/21/19 (Congratulations! Please call [phone] to schedule your appointment in 4 weeks. Call with any questions or concerns. ) Prescriptions: Docusate Sodium [Colace] 100 mg PO BID PRN #60 capsule PRN Reason: Constipation Lidocain2.5%/Prilocai2.5% [Emla] 5 gm TP ONCE PRN #1 tube PRN Reason: Pain Ferrous Sulfate [Feosol 325 MG tab] 325 mg PO TID #90 tablet Ibuprofen [Motrin 800 MG tab] 800 mg PO Q8HR PRN #30 tablet PRN Reason: Pain
[2019-02-21 13:25] LABS: Hemoglobin 7.1 gm/dl (10.1-14.3)
[2019-02-22] MEDS: IBUPROFEN PO SCH (06:07)
[2019-02-22] MEDS: FEOSOL PO SCH (09:21)
[2019-02-22] MEDS: COLACE PO SCH (09:22)
[2019-02-22] MEDS: PRENATAL VITAMIN PO SCH (09:22)
[2019-02-22 17:16] VITALS: BP 107/61
== END 2019-02-22 13:15 | disposition home or self-care (01) | DRG 775 ==
LOC: TRG 12:07 → LD 12:54 → OB 18:43
PROVIDERS: ADMIT Obstetrics & Gynecology; ATTEND Obstetrics & Gynecology
PROC: 10E0XZZ Delivery of Products of Conception, External Approach (ICD-10-PCS; principal; 2019-02-20)
PROC: 3E0R3BZ Introduction of Anesthetic Agent into Spinal Canal, Percutaneous Approach (ICD-10-PCS; 2019-02-20)
PROC: 00HU33Z Insertion of Infusion Device into Spinal Canal, Percutaneous Approach (ICD-10-PCS; 2019-02-20)
PROC: 3E0234Z Introduction of Serum, Toxoid and Vaccine into Muscle, Percutaneous Approach (ICD-10-PCS; 2019-02-21)
DX: O99.62 Diseases of the digestive system complicating childbirth (principal); K21.9 Gastro-esophageal reflux disease without esophagitis; O99.02 Anemia complicating childbirth; Z37.0 Single live birth; Z3A.38 38 weeks gestation of pregnancy; Z23 Encounter for immunization
CPT/HCPCS: 36415; 59025; 85014; 85018; 85027; 86592; 86850; 86900; 86901; 90471; 90715; G0378; J2590; J3010; J7120

== ENCOUNTER 2021-10-25 17:31 | Outpatient (CLI) | payer OTHER ==
[2021-10-25 18:16] VITALS: BP 127/63
[2021-10-25] MEDS ORDERED: LACTATED RINGERS 1,000 ML IV SCH (18:19)
[2021-10-25] MEDS ORDERED: LACTATED RINGERS 1,000 ML ONE (18:23)
[2021-10-25 19:11] LABS: Bilirubin,Urine NEG (Negative); Blood,Urine NEG (Negative); Color,Urine Yellow (Yellow); Mucus,Urine 3+ /HPF; Protein,Urine <15 mg/dL mg/dL (Negative); Urobilinogen,Urine < 2.0 mg/dL (<2.0)
--- NOTE | 2021-10-25 19:22 | Ultrasound Report ---
US OB BPP wo non-stress, US OB limited INDICATION / CLINICAL INFORMATION: [facility]. COMPARISON: None available. FINDINGS: BREATHING MOVEMENT = 2 GROSS BODY MOVEMENT = 2 TONE = 2 QUALITATIVE AMNIOTIC FLUID VOLUME = 2 TOTAL BIOPHYSICAL SCORE = 8/8 AMNIOTIC FLUID INDEX (cm) = 14.3 PRESENTATION: Cephalic. HEART RATE (beats per minute): 152 IMPRESSION: 1. Single live intrauterine . No significant abnormality. 2. biophysical profile = 02/20 3. SCARLETT measures 14.3 cm, within normal limits. Signer Name: Bony Harding MD Signed: 10/25/2021 7:18 PM Workstation Name: [id number]
== END 2021-10-25 20:10 | disposition home or self-care (01) ==
LOC: TRG 17:31 → APU 17:33 → TRG 20:10
PROVIDERS: ATTEND Obstetrics & Gynecology
DX: O36.8130 Decreased fetal movements, third trimester, not applicable or unspecified (principal); Z3A.35 35 weeks gestation of pregnancy
CPT/HCPCS: 76815; 76819; 81001